=== PATIENT | female | born 1980 | race Hispanic/Latino ===

== ENCOUNTER 2021-01-12 18:56 | Inpatient (IN) | payer MEDICAID, SELFPAY ==
[2021-01-12] MEDS ORDERED: hydrALAZINE 20 MG/ML VIAL SLOW IVP PRN (20:08)
[2021-01-12 20:17] LABS: Amnisure Test No Membranes Rupture (No Rupture)
[2021-01-12 21:03] LABS: Bilirubin Neg (Negative); Blood, Urine 250 (Negative); Clarity Clear (Clear); Glucose, Urine (Dipstick) Normal (Negative); Ketone, Urine 5 mg/dL (Negative); Leukocyte 500 (Negative); Nitrite Negative (Negative); Protein, Urine (Dipstick) Negative (Neg-Trace); Urobilinogen Normal mg/dL (Less than 2)
[2021-01-12 21:09] LABS: Bacteria/HPF 1+ HPF (None Seen); RBC/HPF 21-50 HPF (0-3); Squamous Epithelial 0-3 HPF (0-3); WBC/HPF 0-3 HPF (0-3)
[2021-01-12] MEDS ORDERED: Acetaminophen 500 MG TAB PO PRN (21:16)
[2021-01-12] MEDS ORDERED: Misoprostol 200 MCG TAB PR PRN (21:16)
[2021-01-12] MEDS ORDERED: Methylergonovine 0.2 MG/ML VIAL IM PRN (21:16)
[2021-01-12] MEDS ORDERED: Diphenoxylate HCl/Atropine Tablet PO PRN ×2 (21:16)
[2021-01-12] MEDS ORDERED: Lidocaine 1% (PF) 30 ML VIAL SC PRN (21:16)
[2021-01-12] MEDS ORDERED: Promethazine HCl 25 MG/ML VIAL IM PRN (21:16)
[2021-01-12] MEDS ORDERED: Carboprost 250 MCG/ML AMP IM PRN (21:16)
[2021-01-12] MEDS ORDERED: Ondansetron PF 4 MG/2 ML Vial IVP PRN (21:16)
[2021-01-12] MEDS ORDERED: Penicillin G 2.5 MILL.units 2.5 MILL.UNITS in Premix Bag 1 BAG IVPB SCH (21:30)
[2021-01-12] MEDS ORDERED: Lactated Ringer's 1,000 ML IV SCH (21:30)
[2021-01-12] MEDS ORDERED: Penicillin G Potassium 5 MILL.UNITS in Sodium Chloride 0.9% 100 ML IVPB SCH (21:30)
[2021-01-12 21:35] LABS: Hemoglobin 11.5 g/dL (12.0-15.5); Mean Corpuscular HGB CONC 33.5 g/dL (32.0-36.0); Mean Corpuscular Hemoglobin 31.8 pg (27.0-33.0); Mean Corpuscular Volume 94.8 fl (81.6-98.3); Platelet Count 319 10x3/uL (150-450); RBC Distribution Width 13.4 % (11.5-14.5); Red Blood Cell (RBC) Count 3.62 10x6/uL (3.90-5.03); White Blood Cell (WBC) Count 10.7 10x3/uL (3.5-10.5)
[2021-01-12] MEDS ORDERED: NS w/ Oxytocin 30 units 500 ML IV PRN (21:56)
[2021-01-12] MEDS ORDERED: Dexamethasone 6 MG in Sodium Chloride 0.9% 50 ML IVPB SCH (22:00)
[2021-01-12 22:07] LABS: Hep B Surf Ag Non-Reactive S/CO (NonReactive); Syphilis Antibody Nonreactive (Nonreactive); Syphilis Antibody Index 0.03 S/CO (<1.00 Non-Reactive)
[2021-01-12 22:08] LABS: HBSAg Index 0.16 S/CO (0-0.99)
[2021-01-12] MEDS ORDERED: CEFAZOLIN 2 GM in Premix Bag 1 BAG IVPB SCH (23:59)
[2021-01-13] MEDS ORDERED: Dexamethasone 6 MG in Sodium Chloride 0.9% 50 ML IM SCH (00:17)
[2021-01-13] MEDS ORDERED: Dexamethasone 4 mg/ml Vial IM SCH (01:00)
[2021-01-13] MEDS ORDERED: Famotidine/PF 20 mg/2ml Vial SLOW IVP PRN (07:25)
[2021-01-13] MEDS ORDERED: Bicitra 30 ML UDCUP PO PRN (07:25)
[2021-01-13] MEDS ORDERED: Azithromycin 500 MG in Sodium Chloride 0.9% 250 ML 250 ML IVPB SCH ×2 (07:30→08:05)
[2021-01-13] MEDS ORDERED: CEFAZOLIN 2 GM in Premix Bag 1 BAG IVPB SCH (07:30)
[2021-01-13] MEDS ORDERED: Bicitra 30 ML UDCUP ONE (07:57)
[2021-01-13] MEDS ORDERED: CEFAZOLIN 1 GM in Sodium Chloride 0.9% 100 ML IVPB SCH (08:00)
[2021-01-13] MEDS ORDERED: PHENYLEPHRINE-NS 100 MCG/ML 10 ML SYRINGE ONE (08:01)
[2021-01-13] MEDS ORDERED: Oxytocin 10 UNITS/ML VIAL ONE (08:01)
[2021-01-13] MEDS ORDERED: Ondansetron PF 4 MG/2 ML Vial ONE (08:01)
[2021-01-13] MEDS ORDERED: ePHEDrine Sulfate 50 MG/10 ML VIAL ONE (08:02)
[2021-01-13] MEDS ORDERED: Ketorolac Tromethamine 30 MG/ML VIAL ONE (08:02)
[2021-01-13] MEDS ORDERED: Morphine PF 10 MG/10 ML VIAL ONE (08:03)
[2021-01-13] MEDS ORDERED: PROPOFOL 20 ML ONE ×2 (08:54→09:16)
[2021-01-13] MEDS ORDERED: Lidocaine 1% PF 5 ML VIAL ONE (08:54)
[2021-01-13] MEDS ORDERED: Fentanyl 100 MCG/2 ML VIAL ONE (08:59)
[2021-01-13] MEDS ORDERED: Erythromycin Base 0.5% Oint 1 GM TUBE ONE (09:23)
[2021-01-13] MEDS ORDERED: Phytonadione Neonatal 1 MG/0.5 ML AMP ONE (09:23)
[2021-01-13] MEDS ORDERED: Ondansetron HCl/PF 4 MG/2 ML Vial IVP PRN (09:58)
[2021-01-13] MEDS ORDERED: Meperidine HCl/PF 25 MG/ML VIAL SLOW IVP PRN (09:58)
[2021-01-13] MEDS ORDERED: Eucerin (Mineral Oil/Petrolatum,White) 30 gm Jar TOP PRN (09:58)
[2021-01-13] MEDS ORDERED: HYDROmorphone 2 MG/ML VIAL SLOW IVP PRN (09:58)
[2021-01-13] MEDS ORDERED: diphenhydrAMINE 50 MG/ML VIAL IVP PRN (09:58)
[2021-01-13] MEDS ORDERED: Naloxone HCl 0.4 mg/ml Vial IVP PRN ×2 (09:58)
[2021-01-13] MEDS ORDERED: Promethazine HCl 25 MG SUPP PR PRN (09:58)
[2021-01-13] MEDS ORDERED: Naloxone HCl 0.4 mg/ml Vial IV PRN (09:58)
[2021-01-13] MEDS ORDERED: Promethazine HCl 25 MG/ML VIAL IM PRN (09:58)
[2021-01-13] MEDS ORDERED: Ondansetron PF 4 MG/2 ML Vial IVP PRN ×2 (09:58→12:13)
[2021-01-13] MEDS ORDERED: L&D-Morphine 4 MG/ML VIAL SLOW IVP PRN (09:58)
[2021-01-13] MEDS ORDERED: Communication Order-Pharmacy FS SCH (10:00)
[2021-01-13 10:05] LABS: SARS-CoV-2 NAA Rapid Test Not Detected (NotDetected)
[2021-01-13] MEDS ORDERED: ePHEDrine 50 MG/ML VIAL SLOW IVP SCH (11:45)
[2021-01-13] MEDS ORDERED: Methylergonovine 0.2 MG/ML VIAL IM PRN (12:13)
[2021-01-13] MEDS ORDERED: diphenhydrAMINE 25 MG CAP PO PRN (12:13)
[2021-01-13] MEDS ORDERED: Acetaminophen 325 MG TAB PO PRN (12:13)
[2021-01-13] MEDS ORDERED: Misoprostol 200 MCG TAB PR PRN (12:13)
[2021-01-13] MEDS ORDERED: Bisacodyl 10 MG SUPP PR PRN (12:13)
[2021-01-13] MEDS ORDERED: Lanolin Ointment 7 GM TUBE TOP PRN (12:13)
[2021-01-13] MEDS ORDERED: hydrALAZINE 20 MG/ML VIAL SLOW IVP PRN (12:13)
[2021-01-13] MEDS ORDERED: NS w/ Oxytocin 30 units 500 ML ONE (12:21)
[2021-01-13] MEDS ORDERED: Ketorolac Tromethamine 30 MG/ML VIAL IVP SCH (15:45)
[2021-01-13] MEDS ORDERED: Ketorolac Tromethamine 30 MG/ML VIAL IVP PRN (15:45)
[2021-01-13] MEDS: Docusate Calcium (SURFAK) 240 MG CAP PO SCH (22:01)
[2021-01-13] MEDS: Ferrous Sulfate 325 MG TAB PO SCH (22:11)
[2021-01-14] MEDS: HYDROcodone/Acetaminophen 5/325 mg Tablet PO PRN ×4 (04:46→21:13)
[2021-01-14 05:56] LABS: Hemoglobin 9.6 g/dL (12.0-15.5); Mean Corpuscular HGB CONC 33.2 g/dL (32.0-36.0); Mean Corpuscular Volume 96.3 fl (81.6-98.3); Platelet Count 245 10x3/uL (150-450); RBC Distribution Width 13.7 % (11.5-14.5); White Blood Cell (WBC) Count 10.7 10x3/uL (3.5-10.5)
[2021-01-14] MEDS ORDERED: Ibuprofen 800 MG TAB PO SCH (06:45)
[2021-01-14] MEDS: Docusate Calcium (SURFAK) 240 MG CAP PO SCH ×2 (07:41→21:12)
[2021-01-14] MEDS: Ferrous Sulfate 325 MG TAB PO SCH ×2 (07:41→21:12)
[2021-01-14] MEDS: Prenatal Vitamin 1 TAB PO SCH (07:41)
[2021-01-14] MEDS: Ibuprofen 800 MG TAB PO SCH ×2 (14:11→21:12)
[2021-01-14] MEDS: Simethicone Chewable 80 MG TAB PO PRN (21:12)
[2021-01-15] MEDS: Simethicone Chewable 80 MG TAB PO PRN (05:17)
[2021-01-15] MEDS: HYDROcodone/Acetaminophen 5/325 mg Tablet PO PRN ×3 (05:17→16:30)
[2021-01-15] MEDS: Ibuprofen 800 MG TAB PO SCH ×3 (05:18→21:27)
[2021-01-15] MEDS: Docusate Calcium (SURFAK) 240 MG CAP PO SCH ×2 (08:05→21:26)
[2021-01-15] MEDS: Prenatal Vitamin 1 TAB PO SCH (08:05)
[2021-01-15] MEDS: Ferrous Sulfate 325 MG TAB PO SCH ×2 (08:05→21:32)
[2021-01-16] MEDS: HYDROcodone/Acetaminophen 5/325 mg Tablet PO PRN ×2 (01:09→07:24)
[2021-01-16] MEDS: Ibuprofen 800 MG TAB PO SCH (06:20)
[2021-01-16] MEDS: Simethicone Chewable 80 MG TAB PO PRN (08:38)
[2021-01-16] MEDS: Ferrous Sulfate 325 MG TAB PO SCH (08:38)
[2021-01-16] MEDS: Prenatal Vitamin 1 TAB PO SCH (08:38)
[2021-01-16] MEDS: Docusate Calcium (SURFAK) 240 MG CAP PO SCH (08:38)
[2021-01-16 09:53] VITALS: BP 113/55; TEMP 98.5
[2021-01-18] MEDS ORDERED: Ibuprofen 800 MG TAB PO SCH (14:00)
== END 2021-01-16 12:00 | disposition home or self-care (01) | DRG 786 ==
LOC: CSHLD/OP 18:56 → CSHLD 23:30 → CSHPP 01-13 12:30
PROVIDERS: ADMIT Obstetrics & Gynecology; ATTEND Obstetrics & Gynecology
PROC: 10D00Z1 Extraction of Products of Conception, Low, Open Approach (ICD-10-PCS; principal; 2021-01-13)
PROC: 4A1HXCZ Monitoring of Products of Conception, Cardiac Rate, External Approach (ICD-10-PCS; 2021-01-13)
DX: O32.1XX0 Maternal care for breech presentation, not applicable or unspecified (principal); O60.14X0 Preterm labor third trimester with preterm delivery third trimester, not applicable or unspecified; Z3A.35 35 weeks gestation of pregnancy; Z37.0 Single live birth; O42.913 Preterm premature rupture of membranes, unspecified as to length of time between rupture and onset of labor, third trimester; O99.214 Obesity complicating childbirth; E66.9 Obesity, unspecified
CPT/HCPCS: 36415; 51702; 76815; 76819; 81001; 84112; 85027; 86780; 86850; 86900; 86901; 87081; 87086; 87340; 87480; 87510; 87660; 99285; J0690; J1100; J1885; J2270; J2405; J2704; J3010; Q0163; U0002